=== PATIENT | male | born 1950 | race Caucasian/White ===

== ENCOUNTER 2017-03-09 15:13 | Inpatient (IN) | payer OTHER ==
[~2017-03-09] VITALS: Ht 182.9 cm; Wt 105.0 kg
[2017-03-09 16:44] LABS: HEMATOCRIT 43.6 % (38.0-50.0); MCH 28.8 PG (29.0-34.0); MCHC 34.4 G/DL (30.0-36.0); MCV 83.7 FL (86-99); MEAN PLAT.VOLUME 8.8 uM^3 (9.0-12.4); PLATELET COUNT 178 K/uL (156-360); RBC DIS.WIDTH-CV 13.5 % (11.8-14.6); RBC DIS.WIDTH-SD 41.4 % (39-53); RED BLOOD COUNT 5.21 M/uL (4.00-5.50); WHITE BLOOD COUNT 8.4 K/uL (4.1-10.2)
[2017-03-09 16:52] LABS: CHLORIDE 99 mEq/L (99-109); POTASSIUM 4.3 mEq/L (3.7-5.4); SODIUM 133 mEq/L (136-147)
[2017-03-09 16:54] LABS: GLUCOSE 127 mg/dL (70-99); INTER. NORMALIZED RATIO 1.1; PROTHROMBIN TIME 10.9 (9.2-11.2); PTT 23.9 (25-32)
[2017-03-09 16:56] LABS: ANION GAP 9 MEQ/L (2-14)
[2017-03-09 16:58] LABS: GFR ESTIMATE (CALCULATED) > 59 mL/min/
[2017-03-09 16:59] LABS: UREA NITROGEN (BUN) 14 mg/dL (9-23)
[2017-03-09 17:05] LABS: TROP-I INTERPRETATION NEGATIVE; TROPONIN-I < 0.01 ng/mL (0.0-0.30)
[2017-03-09] MEDS ORDERED: LIPITOR80 MG PO (19:31)
[2017-03-09] MEDS ORDERED: OMEPRAZOLE20 MG PO (19:32)
[2017-03-09] MEDS ORDERED: SLEEP AID50 MG PO (19:32)
[2017-03-09] MEDS ORDERED: ZOLOFT100 MG PO (19:33)
[2017-03-09] MEDS ORDERED: COZAAR100 MG PO (19:33)
[2017-03-09] MEDS ORDERED: GLUCOSAMINE1000 MG PO (19:33)
[2017-03-09] MEDS ORDERED: LO-DOSE ASPIRIN81 M2 PO (19:35)
[2017-03-09] MEDS ORDERED: CHONDROITIN SU250 MG PO (19:35)
[2017-03-09] MEDS ORDERED: NIGHT TIME COL296 ML PO (19:37)
[2017-03-09 20:20] LABS: MAGNESIUM 2.3 mg/dL (1.3-2.7)
[2017-03-09 20:24] LABS: TOTAL BILIRUBIN 0.7 mg/dL (0.0-1.0)
[2017-03-09 20:25] LABS: ALKALINE PHOSPHATASE 87 IU/L (3-129); SERUM ETHYL ALCOHOL < 10 mg/dL
[2017-03-09 20:27] LABS: DIRECT BILIRUBIN 0.3 mg/dL (0.0-0.3)
[2017-03-09 20:49] LABS: ADD MIUA? NO; BILIRUBIN NEGATIVE; BLOOD NEGATIVE; COLOR YELLOW ((YELLOW)); GLUCOSE (STRIP) NEGATIVE; KETONES NEGATIVE; LEUKOCYTES NEGATIVE; NITRITE NEGATIVE; PROTEIN (STRIP) NEGATIVE; SPECIFIC GRAVITY 1.013 (1.000-1.030); UCUL ADDED? NO; UROBILINOGEN 0.2 MG/DL (0.2-1.0)
[2017-03-09 21:18] VITALS: BP 140/89
[2017-03-09 21:47] LABS: AMPHETAMINES QUANT VALUE 0 NG/ML; BARBITUATES QUANT VALUE 0 NG/ML; BENZODIAZEPINES, URINE SCREEN POSITIVE (200 ng/mL); MARIJUANA QUANT VALUE 0 NG/ML; OPIATES QUANTITATIVE VALUE 0 NG/ML; PHENCYCLIDINE QUANT VALUE 0 NG/ML
[2017-03-10 00:34] VITALS: BP 126/77
[2017-03-10 04:50] VITALS: BP 144/95
[2017-03-10 06:33] LABS: HDL CHOLESTEROL 32 MG/DL (Desirable>=40); LDL CHOLESTEROL 118 mg/dL (Desirable<100); NON-HDL CHOLESTEROL 175 mg/dL (Desirable<160); TOTAL CHOLESTEROL 207 mg/dL (Desirable<200); TRIGLYCERIDES 285 MG/DL (Normal: <150)
[2017-03-10 07:20] LABS: Estimated Average Glucose 160 mg/dL (70-123); HEMOGLOBIN A1c (GLYCOHEMOGLOB) 7.2 % HGB (Below 5.7)
[2017-03-10 08:20] VITALS: BP 148/71
[2017-03-10 12:45] VITALS: BP 121/72
[2017-03-10 17:25] VITALS: BP 129/78
[2017-03-10 23:42] VITALS: BP 160/94
[2017-03-11 04:13] VITALS: BP 156/79
[2017-03-11 08:18] VITALS: BP 139/75
[2017-03-11 10:57] VITALS: BP 122/68
[2017-03-11] MEDS ORDERED: AMLODIPINE BESYL5 MG PO (12:22)
[2017-03-11] MEDS ORDERED: METFORMIN HCL500 MG PO (12:22)
[2017-03-11] MEDS ORDERED: CLOPIDOGREL75 MG PO (12:22)
== END 2017-03-11 15:10 | disposition home or self-care (01) | DRG 65 ==
LOC: EME 15:13 → EDOF 19:13 → 5WEST 19:13 → 5SOUTH 03-10 17:08
PROVIDERS: Internal Medicine; Physician Assistant Medical
DX: I63.9 Cerebral infarction, unspecified (principal); E11.65 Type 2 diabetes mellitus with hyperglycemia; I10 Essential (primary) hypertension; E03.9 Hypothyroidism, unspecified; E78.5 Hyperlipidemia, unspecified; E87.1 Hypo-osmolality and hyponatremia; I25.2 Old myocardial infarction; K21.9 Gastro-esophageal reflux disease without esophagitis; Z68.31 Body mass index [BMI] 31.0-31.9, adult; Z79.4 Long term (current) use of insulin; Z79.82 Long term (current) use of aspirin; Z79.84 Long term (current) use of oral hypoglycemic drugs; Z79.899 Other long term (current) drug therapy; Z83.3 Family history of diabetes mellitus; Z81.8 Family history of other mental and behavioral disorders; Z82.0 Family history of epilepsy and other diseases of the nervous system; Z82.3 Family history of stroke; Z87.891 Personal history of nicotine dependence; M19.90 Unspecified osteoarthritis, unspecified site; Z87.828 Personal history of other (healed) physical injury and trauma; E66.9 Obesity, unspecified; R47.81 Slurred speech; N39.41 Urge incontinence; N40.1 Benign prostatic hyperplasia with lower urinary tract symptoms; R26.89 Other abnormalities of gait and mobility; G83.11 Monoplegia of lower limb affecting right dominant side
CPT/HCPCS: 70450; 70551; 71020; 80048; 80061; 80076; 80306 90; 81003; 82948; 83036; 83735; 84443; 84484; 85027; 85610; 85730; 93005; 93306; 93880; 99281; 99283; G0378; G0480; J1650; J1815; J7030